=== PATIENT | male | born 1970 | race Caucasian/White ===

== ENCOUNTER 2016-09-02 23:28 | Emergency (ER) | payer BC ==
[~2016-09-02 23:28] MED LIST: AMBIEN CR12.5 MG PO; AMBIEN PO; ASAB PO; AZOR1 TA3 PO; AZOR1 TAB PO; CELEBREX2 PO; CYMBALTA60 PO; DIOV160 PO; FERROUS SULF324 MG PO; FISH-EPA1000 MG PO; FLEXERIL5 MG PO; LORTAB 5 PO; LYRICA50 PO; NEUR300 PO; NEXIUM20 M1 PO; NEXIUM40 PO; NORCO1 TA1; NORCO1 TA1 PO; NORV5 PO; OXYCON20 PO; PCET PO; PRILO PO; T PO; ULTRAM50 PO; V5 PO; WELL75 PO
== END 2016-09-03 02:45 | disposition home or self-care (01) ==
LOC: ER 23:28
DX: M48.06 Spinal stenosis, lumbar region (principal); I10 Essential (primary) hypertension; K21.9 Gastro-esophageal reflux disease without esophagitis; F32.9 Major depressive disorder, single episode, unspecified; Z88.5 Allergy status to narcotic agent; Z79.899 Other long term (current) drug therapy
CPT/HCPCS: 72131; 96374; 96375; 99284; J1170; J2360; J2405